=== PATIENT | female | born 1950 | race African-American/Black ===

== ENCOUNTER 2016-11-05 05:56 | Emergency (ER) | payer MEDICARE, MEDICAID ==
[~2016-11-05] VITALS: Ht 154.9 cm; Wt 117.9 kg
[2016-11-05] MEDS ORDERED: OXYMETAZOLINE 0.05% NASAL SPRAY 30ML BOTTLE. NS ONE ×2 (06:39→06:45)
--- NOTE | 2016-11-05 07:11 | PHYS DOC ---
Past Medical History Past Medical History: Arthritis, Hypertension, Other Additional Past Medical Histor: Gout Past Surgical History: No Surgical History Alcohol Use: None Drug Use: None Adult General Chief Complaint Chief Complaint: NOSEBLEED HPI HPI Patient is a 65 year old female who presents with complaint of nosebleed that started shortly prior to arrival. Patient awoke with the symptoms this morning. Due to inability to stop the nosebleed the patient came to the emergency department for evaluation. Upon arrival from EMS the patient states that her bleeding has resolved at this time. Patient denies any other symptoms currently. Patient states that she had history of nosebleed 2-3 years ago that required nasal packing at that time. Patient has not taken any medications to help with her symptoms. Review of Systems Review of Systems Constitutional: Denies fever or chills [] HENT: Nosebleed [] Respiratory: Denies cough or shortness of breath [] Cardiovascular: Denies chest pain or edema [] GI: Denies abdominal pain, nausea, vomiting, bloody stools or diarrhea [] : Denies dysuria or hematuria [] Musculoskeletal: Denies back pain or joint pain [] Integument: Denies rash or skin lesions [] Neurologic: Denies headache, focal weakness or sensory changes [] Current Medications Current Medications Current Medications Medications (Trade) Dose Ordered Sig/Darlin Start Time Stop Time Status Last Admin Dose Admin Oxymetazoline HCl (Afrin) 120 spray STK-MED ONCE 11/05/16 06:39 11/05/16 06:40 DC Allergies Allergies Allergies Coded Allergies Type Severity Reaction Last Updated Verified No Known Drug Allergies 10/06/15 No Physical Exam Physical Exam Constitutional: Alert, afebrile, no acute distress. [] HENT: Normocephalic, atraumatic, bilateral external ears normal, oropharynx moist with no posterior pharyngeal blood noted, no oral exudates, bilateral nasal mucosal edema, no active bleeding. [] Eyes: PERRLA, EOMI, conjunctiva normal, no discharge. [] Neck: Normal range of motion, no tenderness, supple, no stridor. [] Lungs & Thorax: Bilateral breath sounds clear to auscultation [] Extremities: No tenderness, no cyanosis, no clubbing, ROM intact, no edema. [] Neurologic: Alert and oriented X 3, normal motor function, normal sensory function, no focal deficits noted. [] Current Patient Data Vital Signs Vital Signs Date Time Temp Pulse Resp B/P Pulse Ox O2 Delivery O2 Flow Rate FiO2 11/05/16 06:07 97 91 18 140/85 95 Room Air 97.0 EKG EKG Not performed [] Radiology/Procedures Radiology/Procedures Not performed [] Course & Med Decision Making Course & Med Decision Making Pertinent Labs and Imaging studies reviewed. (See chart for details) Patient was treated with Afrin nasal spray. On reevaluation, the patient continues to have no active bleeding at this time. The patient does not have any visible erosions requiring cautery at this time. The patient will be discharged with recommendation to use Afrin nasal spray twice a day for the next 2-3 days with recommended follow-up with primary physician in 5-7 days. Recommended return to the emergency department for any worsening symptoms. Patient voiced understanding and in agreement with treatment plan. Dragon Disclaimer Dragon Disclaimer This electronic medical record was generated, in whole or in part, using a voice recognition dictation system. Departure Departure Impression: Primary Impression: Epistaxis Disposition: 01 HOME, SELF-CARE Condition: IMPROVED Referrals: KEYONA DICKEY MD (PCP) Patient Instructions: Nosebleed Additional Instructions: Follow-up with your primary doctor in 5-7 days. Continue use of Afrin nasal spray for 2-3 days. Discontinue Afrin nasal spray after 3 days of use. Return to the emergency department for any worsening symptoms. MRAIO GENTILE MD Nov 05, 2016 07:11
[2016-11-05 07:18] VITALS: BP 128/80
== END 2016-11-05 07:19 | disposition home or self-care (01) ==
LOC: ER 05:56
DX: R04.0 Epistaxis (principal); I10 Essential (primary) hypertension; M10.9 Gout, unspecified; M19.90 Unspecified osteoarthritis, unspecified site
CPT/HCPCS: 99282

== ENCOUNTER 2016-11-07 05:08 | Emergency (ER) | payer MEDICARE, MEDICAID ==
[~2016-11-07] VITALS: Ht 154.9 cm; Wt 117.9 kg
[2016-11-07 05:15] VITALS: BP 142/89
--- NOTE | 2016-11-07 05:23 | PHYS DOC ---
Past Medical History Past Medical History: Arthritis, Hypertension, Other Additional Past Medical Histor: Gout Past Surgical History: No Surgical History Alcohol Use: None Drug Use: None Adult General Chief Complaint Chief Complaint: NOSEBLEED HPI HPI 65-year-old female presents with 1 hour history of nosebleed. She states she's had some off and on nosebleeds over the last several days. She states she decided to come in when it didn't stop after an hour. She states she's been dabbing in her nose and not holding constant pressure. She states now the bleeding stopped. [] Review of Systems Review of Systems Constitutional: Denies fever or chills [] Eyes: Denies change in visual acuity, redness, or eye pain [] HENT: Epistaxis [] Respiratory: Denies cough or shortness of breath [] Cardiovascular: No additional information not addressed in HPI [] GI: Denies abdominal pain, nausea, vomiting, bloody stools or diarrhea [] : Denies dysuria or hematuria [] Musculoskeletal: Denies back pain or joint pain [] Integument: Denies rash or skin lesions [] Neurologic: Denies headache, focal weakness or sensory changes [] Endocrine: Denies polyuria or polydipsia [] Current Medications Current Medications Current Medications Medications (Trade) Dose Ordered Sig/Darlin Start Time Stop Time Status Last Admin Dose Admin Oxymetazoline HCl (Afrin) 2 spray 1X ONCE 11/07/16 05:30 11/07/16 05:31 DC 11/07/16 05:39 2 SPRAY Allergies Allergies Allergies Coded Allergies Type Severity Reaction Last Updated Verified No Known Drug Allergies 10/06/15 No Physical Exam Physical Exam Constitutional: Well developed, well nourished, no acute distress, non-toxic appearance. [] HENT: Dried blood in the left naris no active bleeding [] Eyes: PERRLA, EOMI, conjunctiva normal, no discharge. [] Neck: Normal range of motion, no tenderness, supple, no stridor. [] Cardiovascular:Heart rate regular rhythm, no murmur [] Lungs & Thorax: Bilateral breath sounds clear to auscultation [] Abdomen: Bowel sounds normal, soft, no tenderness, no masses, no pulsatile masses. [] Skin: Warm, dry, no erythema, no rash. [] Back: No tenderness, no CVA tenderness. [] Extremities: No tenderness, no cyanosis, no clubbing, ROM intact, no edema. [] Neurologic: Alert and oriented X 3, normal motor function, normal sensory function, no focal deficits noted. [] Psychologic: Affect normal, judgement normal, mood normal. [] Current Patient Data Vital Signs Vital Signs Date Time Temp Pulse Resp B/P Pulse Ox O2 Delivery O2 Flow Rate FiO2 11/07/16 05:15 97.6 107 20 142/89 95 Room Air 97.6 EKG EKG [] Radiology/Procedures Radiology/Procedures [] Course & Med Decision Making Course & Med Decision Making Pertinent Labs and Imaging studies reviewed. (See chart for details) [] Dragon Disclaimer Dragon Disclaimer This electronic medical record was generated, in whole or in part, using a voice recognition dictation system. Departure Departure Impression: Primary Impression: Epistaxis Disposition: 01 HOME, SELF-CARE Condition: STABLE Referrals: KEYONA DICKEY MD (PCP) Patient Instructions: Nosebleed Additional Instructions: Hold constant pressure to the area for 30 minutes if bleeding reoccurs. Return to the emergency part with any new or concerning symptoms. ALEXIS PURDY DO Nov 07, 2016 05:23
[2016-11-07] MEDS ORDERED: OXYMETAZOLINE 0.05% NASAL SPRAY 30ML BOTTLE. NS ONE (05:30)
== END 2016-11-07 05:55 | disposition home or self-care (01) ==
LOC: ER 05:08
DX: R04.0 Epistaxis (principal); I10 Essential (primary) hypertension; M10.9 Gout, unspecified; M19.90 Unspecified osteoarthritis, unspecified site
CPT/HCPCS: 99284

== ENCOUNTER 2019-09-18 04:21 | Emergency (ER) | payer OTHER, MEDICAID ==
[~2019-09-18] VITALS: Ht 154.9 cm; Wt 113.4 kg
--- NOTE | 2019-09-18 04:41 | PHYS DOC ---
Past Medical History Past Medical History: Arthritis, Hypertension, Other Additional Past Medical Histor: Gout Past Surgical History: No Surgical History Alcohol Use: None Drug Use: None Adult General Chief Complaint Chief Complaint: NOSEBLEED HPI HPI 68 yo female with history of HTN presents to the ER with complaints of nosebleed. She states awoke her approximately 230 and has been bleeding for 1 hour. States it stopped 10 min prior to arrival. Patient denies headache or visual change. BP 130's systolically. Patient denies chest pain, SOB, nausea or vomiting. Nothing makes worse, nothing makes better. All other ROS negative unless documented in HPI Review of Systems Review of Systems See Above Current Medications Current Medications Current Medications Medications (Trade) Dose Ordered Sig/Darlin Start Time Stop Time Status Last Admin Dose Admin Oxymetazoline HCl (Afrin) 2 spray 1X ONCE 09/18/19 05:00 09/18/19 05:01 Silver Nitrate/ Potassium Nitrate 1 each STK-MED ONCE 09/18/19 04:59 09/18/19 05:00 DC Allergies Allergies Allergies Coded Allergies Type Severity Reaction Last Updated Verified No Known Drug Allergies 10/06/15 No Physical Exam Physical Exam See Above Constitutional: Well developed, well nourished, no acute distress, non-toxic appearance. [] HENT: Normocephalic, atraumatic, bilateral external ears normal, oropharynx moist, no oral exudates, nose normal - dried blood in left nares, not evidence of active bleeding at this time [] Eyes: PERRLA, EOMI, conjunctiva normal, no discharge. [] Cardiovascular:Heart rate regular rhythm, no murmur [] Lungs & Thorax: Bilateral breath sounds clear to auscultation [] Skin: Warm, dry, no erythema, no rash. [] Neurologic: Alert and oriented X 3, no focal deficits noted. [] Psychologic: Affect normal, judgement normal, mood normal. [] EKG EKG [] Radiology/Procedures Radiology/Procedures [] Course & Med Decision Making Course & Med Decision Making Pertinent Labs and Imaging studies reviewed. (See chart for details) []68 yo female with history of HTN presents to the ER with complaints of nosebleed. She states awoke her approximately 230 and has been bleeding for 1 hour. States it stopped 10 min prior to arrival. Patient denies headache or visual change. BP 130's systolically. Patient denies chest pain, SOB, nausea or vomiting. Nothing makes worse, nothing makes better. Area of left nares with some moist areas however no significant bleeding appreciated Silver nitrate stick used for hemostasis No evidence of acute bleeding at this time BP stable Return precautions provided Dragon Disclaimer Dragon Disclaimer This electronic medical record was generated, in whole or in part, using a voice recognition dictation system. Departure Departure Impression: Primary Impression: Epistaxis Disposition: HOME, SELF-CARE Condition: STABLE Referrals: NO PCP (PCP) Patient Instructions: Nose Drops, Saline, [id number], Nosebleed, [id number] Additional Instructions: Recommend follow up with PCP 3 - 5 days Return to the ER with worsening symptoms, intractable pain, fever, altered mental status Tylenol/Motrin as needed for pain BRITT COELLO MD Sep 18, 2019 04:41
[2019-09-18] MEDS ORDERED: SILVER NITRATE STICK TP ONE ×2 (04:59→05:30)
[2019-09-18] MEDS ORDERED: OXYMETAZOLINE 0.05% NASAL SPRAY 30ML BOTTLE. NS ONE (05:00)
[2019-09-18 05:05] VITALS: BP 108/65
== END 2019-09-18 05:10 | disposition home or self-care (01) ==
LOC: ER 04:21
DX: R04.0 Epistaxis (principal); I10 Essential (primary) hypertension; M19.90 Unspecified osteoarthritis, unspecified site; M10.9 Gout, unspecified
CPT/HCPCS: 30901; 99284

== ENCOUNTER 2021-08-12 03:04 | Emergency (ER) | payer MEDICARE, MEDICAID ==
[~2021-08-12] VITALS: Ht 165.1 cm; Wt 127.3 kg
[2021-08-12] MEDS ORDERED: OXYMETAZOLINE 0.05% NASAL SPRAY 30ML BOTTLE. NS ONE (03:30)
[2021-08-12 03:43] VITALS: BP 120/77
--- NOTE | 2021-08-12 03:53 | PHYS DOC ---
Past Medical History Past Medical History: Arthritis, Hypertension, Other Additional Past Medical Histor: Gout Past Surgical History: No Surgical History Smoking Status: Never Smoker Alcohol Use: None Drug Use: None General Adult EDM: Chief Complaint: NOSEBLEED HPI: HPI: Patient is a 70 year old female who presents to ER for evaluation of nosebleeding on the left side. Patient is on Eliquis. Patient says she went to sleep last night, she turned on the heat in her house. She woke up noticed blood dripping out of her left nose. So she came here for evaluation. Patient has history of no bleeding in the past. Patient said by the time she got here the bleeding stopped. Patient denied headache, no chest pain, no abdominal pain, no nausea vomiting. Patient denies any cough or any trouble breathing. Review of Systems: Review of Systems: Constitutional: Denies fever or chills. [] Eyes: Denies change in visual acuity. [] HENT: Denies sore throat, positive for left-sided nosebleeding. Respiratory: Denies cough or shortness of breath. [] Cardiovascular: Denies chest pain or edema. [] GI: Denies abdominal pain, nausea, vomiting, bloody stools or diarrhea. [] : Denies dysuria. [] Musculoskeletal: Denies back pain or joint pain. [] Integument: Denies rash. [] Neurologic: Denies headache, focal weakness or sensory changes. [] Endocrine: Denies polyuria or polydipsia. [] Lymphatic: Denies swollen glands. [] Psychiatric: Denies depression or anxiety. [] Heart Score: C/O Chest Pain: N/A Risk Factors: Risk Factors: DM, Current or recent (<one month) smoker, HTN, HLP, family history of CAD, obesity. Risk Scores: Score 0 - 3: 2.5% MACE over next 6 weeks - Discharge Home Score 4 - 6: 20.3% MACE over next 6 weeks - Admit for Clinical Observation Score 7 - 10: 72.7% MACE over next 6 weeks - Early Invasive Strategies Current Medications: Current Medications Medications (Trade) Dose Ordered Sig/Darlin Start Time Stop Time Status Last Admin Dose Admin Oxymetazoline HCl (Afrin) 2 spray 1X ONCE 08/12/21 03:30 08/12/21 03:31 DC 08/12/21 03:44 2 SPRAY Allergies: Allergies: Allergies Coded Allergies Type Severity Reaction Last Updated Verified No Known Drug Allergies 10/06/15 No Physical Exam: PE: Constitutional: Well developed, well nourished, no acute distress, non-toxic appearance. [] HENT: Normocephalic, atraumatic, bilateral external ears normal, oropharynx moist, no oral exudates, left nare with some dried blood on the nasal septum area, no active bleeding noted. Eyes: PERRLA, EOMI, conjunctiva normal, no discharge. [] Neck: Normal range of motion, no tenderness, supple, no stridor. [] Cardiovascular:Heart rate regular rhythm, no murmur [] Lungs & Thorax: Bilateral breath sounds clear to auscultation [] Abdomen: Bowel sounds normal, soft, no tenderness, no masses, no pulsatile masses. [] Skin: Warm, dry, no erythema, no rash. [] Back: No tenderness, no CVA tenderness. [] Extremities: No tenderness, no cyanosis, no clubbing, ROM intact, no edema. [] Neurologic: Alert and oriented X 3, normal motor function, normal sensory function, no focal deficits noted. [] Psychologic: Affect normal, judgement normal, mood normal. [] EKG: EKG: [] Radiology/Procedures: Radiology/Procedures: [] Course & Med Decision Making: Course & Med Decision Making Pertinent Labs and Imaging studies reviewed. (See chart for details) Patient is a 70-year-old female who present to ER due to nosebleeding. Patient is on Eliquis. There was no active bleeding on examination. Patient was given canister nasal Afrin to be used whenever she has bleeding again Dragon Disclaimer: Rosalia Disclaimer: This electronic medical record was generated, in whole or in part, using a voice recognition dictation system. Departure Departure Impression: Primary Impression: Epistaxis Disposition: HOME / SELF CARE / HOMELESS Condition: IMPROVED Referrals: FAINA ARDON MD (PCP) VERONICA JACQUES MD Please call this [facility], [facility] Throat physiician for outpatient follow up this week. Patient Instructions: Nosebleed Additional Instructions: Thank you for visiting our Emergency Department. We appreciate you trusting us with your care. If any additional problems come up don't hesitate to return to visit us. Please follow up with your primary care provider so they can plan additional care if needed and know about the problem that you had. If symptoms worsen come back to the Emergency Department. Any concerning symptoms that start such as chest pain, shortness of air, weakness or numbness on one side of the body, running high fevers or any other concerning symptoms return to the ER. OTILIA FRIEDMAN DO Aug 12, 2021 03:53
== END 2021-08-12 04:00 | disposition home or self-care (01) ==
LOC: ER 03:04
DX: R04.0 Epistaxis (principal); I10 Essential (primary) hypertension; M10.9 Gout, unspecified
CPT/HCPCS: 99282